=== PATIENT | male | born 1985 | race Caucasian/White ===

== ENCOUNTER 2020-04-13 11:44 | Emergency (ER) | payer OTHER ==
[2020-04-13] MEDS ORDERED: LIDOCAINE HCL 1% 20 ML VIAL ONE (12:11)
[2020-04-13] MEDS ORDERED: TETANUS/DIPHTHERIA TOXOID [ADULT] 0.5 ML VIAL IM ONE (12:12)
== END 2020-04-13 13:20 | disposition home or self-care (01) ==
LOC: EDH 11:44
DX: S61.211A Laceration without foreign body of left index finger without damage to nail, initial encounter (principal); Z72.0 Tobacco use; W26.0XXA Contact with knife, initial encounter; Y93.89 Activity, other specified; Y92.89 Other specified places as the place of occurrence of the external cause; Y99.8 Other external cause status
CPT/HCPCS: 12002; 90471; 90714

== ENCOUNTER 2024-05-20 13:38 | Emergency (ER) | payer OTHER ==
[~2024-05-20] VITALS: Ht 177.8 cm; Wt 136.1 kg
[2024-05-20] MEDS: HYDROcodone/APAP 5/325 1 TAB TABLET PO STA (15:13)
[2024-05-20] MEDS: ketOROlac 15MG/ML VIAL (15MG/ML) IM STA (15:13)
[2024-05-20] MEDS: LIDOCAINE HCL 2% VISCOUS 15 ML UDCUP PO STA (15:13)
[2024-05-20] MEDS ORDERED: AMOX1TAB16 PO (15:14)
[2024-05-20 15:18] VITALS: BP 139/88; PULSE 87; RESP 18; TEMP 97.7; O2SAT 98
== END 2024-05-20 15:47 | disposition home or self-care (01) ==
LOC: EDH 13:38
DX: K08.89 Other specified disorders of teeth and supporting structures (principal); I10 Essential (primary) hypertension
CPT/HCPCS: 99283; 96372; J1885